=== PATIENT | female | born 1950 | race Caucasian/White ===

== ENCOUNTER 2017-12-02 11:48 | Outpatient (CLI) | payer MEDICARE, OTHER | END 2017-12-02 11:49 | disposition home or self-care (01) | LOC: BICMAMMO 11:48 | PROVIDERS: ATTEND Family Medicine | DX: Z12.31 Encounter for screening mammogram for malignant neoplasm of breast (principal); R92.1 Mammographic calcification found on diagnostic imaging of breast | CPT/HCPCS: 77063; 77067 ==

== ENCOUNTER 2018-05-20 10:44 | Outpatient (CLI) | payer MEDICARE, OTHER ==
--- NOTE | 2018-05-20 12:08 | BD ---
DEXA BONE DENSITY EXAM: HISTORY: A 68-year-old postmenopausal female for screening. COMPARISON: 07/21/2012 FINDINGS: LUMBAR SPINE BMD (g/cm2) T-SCORE L1 0.876 -1.0 L2 0.901 -1.2 L3 0.983 -0.9 L4 1.098 0.3 TOTAL L1-L4 0.972 -0.7 LEFT FEMORAL NECK 0.738 -1.0 TOTAL PROXIMAL LEFT FEMUR 0.915 -0.2 IMPRESSION: Normal bone mineral density. When compared to the prior examination, the bone density in the hip has decreased approximately 6%, and the bone density in the spine has not changed significantly. POS: [facility]
== END 2018-05-20 10:45 | disposition home or self-care (01) ==
LOC: BICMAMMO 10:44
PROVIDERS: ATTEND Family Medicine
DX: Z13.820 Encounter for screening for osteoporosis (principal)
CPT/HCPCS: 77080

== ENCOUNTER 2018-12-10 20:30 | Outpatient (CLI) | payer MEDICARE, OTHER | END 2018-12-10 20:31 | disposition home or self-care (01) | LOC: SLEEPLAB 20:30 | PROVIDERS: ATTEND Family Medicine | DX: G47.9 Sleep disorder, unspecified (principal); G47.33 Obstructive sleep apnea (adult) (pediatric); E66.9 Obesity, unspecified; I10 Essential (primary) hypertension; R53.83 Other fatigue | CPT/HCPCS: 95810 ==

== ENCOUNTER 2018-12-12 11:51 | Outpatient (CLI) | payer MEDICARE, OTHER ==
--- NOTE | 2018-12-12 15:25 | MMO ---
Bilateral MAMMO Bilat Screen [facility]. CLINICAL HISTORY: Patient is 68 years old and is seen for screening. The patient has no family history of breast cancer. The patient has no personal history of cancer. VIEWS: The views performed were: bilateral craniocaudal with tomosynthesis and bilateral mediolateral oblique with tomosynthesis. FILMS COMPARED: The present examination has been compared to a prior imaging study performed at [facility] on 12/02/2017. MAMMOGRAM FINDINGS: There are scattered fibroglandular densities. There are benign appearing calcifications seen in both breasts. There are no suspicious masses, suspicious calcifications, or new areas of architectural distortion. IMPRESSION: THERE IS NO MAMMOGRAPHIC EVIDENCE OF MALIGNANCY. A ROUTINE FOLLOW-UP MAMMOGRAM IN 1 YEAR IS RECOMMENDED. THE RESULTS OF THIS EXAM WERE SENT TO THE PATIENT. ACR BI-RADS Category 2 - Benign finding MAMMOGRAPHY NOTE: 1. A negative mammogram report should not delay a biopsy if a dominant of clinically suspicious mass is present. 2. Approximately 10% to 15% of breast cancers are not detected by mammography. 3. Adenosis and dense breasts may obscure an underlying neoplasm. Reported by: FLO CASEY MD Electonically Signed: [id number]
== END 2018-12-12 11:52 | disposition home or self-care (01) ==
LOC: BICMAMMO 11:51
PROVIDERS: ATTEND Family Medicine
DX: Z12.31 Encounter for screening mammogram for malignant neoplasm of breast (principal)
CPT/HCPCS: 77063; 77067

== ENCOUNTER 2019-01-06 20:30 | Outpatient (CLI) | payer MEDICARE, OTHER | END 2019-01-06 20:31 | disposition home or self-care (01) | LOC: SLEEPLAB 20:30 | PROVIDERS: ATTEND Family Medicine | DX: G47.9 Sleep disorder, unspecified (principal); G47.33 Obstructive sleep apnea (adult) (pediatric); R53.83 Other fatigue; I10 Essential (primary) hypertension; R06.83 Snoring; G47.10 Hypersomnia, unspecified; E66.9 Obesity, unspecified; Z68.31 Body mass index [BMI] 31.0-31.9, adult | CPT/HCPCS: 95811 ==

== ENCOUNTER 2021-01-24 13:16 | Outpatient (CLI) | payer MEDICARE, OTHER | END 2021-01-24 13:17 | disposition home or self-care (01) | LOC: BICMAMMO 13:16 | PROVIDERS: ATTEND Family Medicine | DX: Z12.31 Encounter for screening mammogram for malignant neoplasm of breast (principal) | CPT/HCPCS: 77063; 77067 ==

== ENCOUNTER 2021-12-15 10:55 | Outpatient (CLI) | payer MEDICARE, OTHER ==
[2021-12-15 12:47] LABS: #Basophils 0.1 10x3/uL (0.0-0.2); #Eosinphils 0.2 10x3/uL (0.0-0.5); #Monocytes 0.6 10x3/uL (0.0-1.1); #Neutrophils 4.5 10x3/uL (1.5-8.4); %Basophils 0.9 % (0.0-2.0); %Eosinophils 2.7 % (0.0-6.0); %Monocytes 8.4 % (0.0-10.0); %Neutrophils 59.7 % (40.0-75.0); Hemoglobin 13.4 g/dL (12.0-15.5); Mean Corpuscular HGB CONC 33.9 g/dL (32.0-36.0); Mean Corpuscular Volume 88.6 fl (81.6-98.3); Mean Platelet Volume 10.6 fl (7.4-10.4); Platelet Count 179 10x3/uL (150-450); RBC Distribution Width 14.2 % (11.5-14.5); Red Blood Cell (RBC) Count 4.46 10x6/uL (3.90-5.03); White Blood Cell (WBC) Count 7.5 10x3/uL (3.5-10.5)
== END 2021-12-15 10:56 | disposition home or self-care (01) ==
LOC: LABBT 10:55
PROVIDERS: ATTEND Orthopaedic Surgery Hand Surgery
DX: Z01.818 Encounter for other preprocedural examination (principal); Z20.822 Contact with and (suspected) exposure to COVID-19
CPT/HCPCS: 85025; 87811; 93005; 93010

== ENCOUNTER → 2021-12-20 | Day surgery (SDC) | payer MEDICARE, OTHER ==
[2021-12-15 13:56] VITALS: BMI 30.7
[~2021-12-20] MED LIST: Bacitracin Zinc Ointment 30 gm TUBE ONE; Bupivacaine PF 0.5% 30 ML VIAL ONE; CEFAZOLIN 2 GM VIAL ONE; Dexamethasone 20 MG/5 ML VIAL ONE; Fentanyl 100 MCG/2 ML VIAL ONE; Ketorolac Tromethamine 30 MG/ML VIAL ONE; Lidocaine 1% MPF 2 ML VIAL ONE; Midazolam HCl 2 mg/2 ml Vial ONE; Neomycin-Polymyxin 1 ML AMP ONE; Ondansetron PF 4 MG/2 ML Vial ONE; PROPOFOL 200 MG/20 ML VIAL ONE; Sodium Chloride 0.9% 100 ML ONE; ePHEDrine 50 MG/ML VIAL ONE; fentaNYL Citrate/PF 100 MCG/2 ML SYRINGE ONE
== END | disposition home or self-care (01) ==
LOC: SDC 11:44
PROVIDERS: ATTEND Orthopaedic Surgery Hand Surgery
PROC: 01N50ZZ Release Median Nerve, Open Approach (ICD-10-PCS; principal; 2021-12-20)
PROC: 0LB50ZZ Excision of Right Lower Arm and Wrist Tendon, Open Approach (ICD-10-PCS; 2021-12-20)
PROC: 0LX50ZZ Transfer Right Lower Arm and Wrist Tendon, Open Approach (ICD-10-PCS; 2021-12-20)
PROC: 0RUS07Z Supplement Right Carpometacarpal Joint with Autologous Tissue Substitute, Open Approach (ICD-10-PCS; 2021-12-20)
PROC: 3E0T3BZ Introduction of Anesthetic Agent into Peripheral Nerves and Plexi, Percutaneous Approach (ICD-10-PCS; 2021-12-20)
DX: M18.0 Bilateral primary osteoarthritis of first carpometacarpal joints (principal); G56.03 Carpal tunnel syndrome, bilateral upper limbs; M67.431 Ganglion, right wrist; M65.331 Trigger finger, right middle finger; M19.031 Primary osteoarthritis, right wrist; M19.032 Primary osteoarthritis, left wrist; I10 Essential (primary) hypertension; E78.5 Hyperlipidemia, unspecified; E03.9 Hypothyroidism, unspecified; Z86.010 Personal history of colon polyps; Z87.891 Personal history of nicotine dependence; Z79.82 Long term (current) use of aspirin; Z79.890 Hormone replacement therapy; Z79.899 Other long term (current) drug therapy
CPT/HCPCS: 76000; 88304; J0690; J1100; J1885; J2250; J2405; J2704; J3010; J3490; S0020

== ENCOUNTER 2023-02-19 09:39 | Outpatient (CLI) | payer MEDICARE, OTHER | END 2023-02-19 09:40 | disposition home or self-care (01) | LOC: BICMAMMO 09:39 | PROVIDERS: ATTEND Family Medicine | DX: Z13.820 Encounter for screening for osteoporosis (principal); M85.88 Other specified disorders of bone density and structure, other site | CPT/HCPCS: 77080 ==

== ENCOUNTER 2023-12-23 07:14 | Outpatient (CLI) | payer MEDICARE, OTHER ==
[2023-12-23] MEDS ORDERED: Iopamidol 370 76% 100 ML VIAL ONE (07:23)
== END 2023-12-23 07:15 | disposition home or self-care (01) ==
LOC: CT 07:14
PROVIDERS: ATTEND Internal Medicine Cardiovascular Disease
DX: I77.810 Thoracic aortic ectasia (principal); Z01.818 Encounter for other preprocedural examination; M17.11 Unilateral primary osteoarthritis, right knee
CPT/HCPCS: 71275; 82565; 93005; Q9967; 80053; 84443; 85025; 93010

== ENCOUNTER 2023-12-23 08:31 | Outpatient (CLI) | payer MEDICARE, OTHER ==
[2023-12-23 09:44] LABS: #Basophils 0.05 10x3/uL (0.0-0.2); %Basophils 0.8 % (0.0-1.0); %Eosinophils 2.6 % (0.0-10.0); %Lymphocytes 25.7 % (21.0-51.0); %Monocytes 7.2 % (0.0-10.0); %Neutrophils 63.4 % (42.0-75.0); Hematocrit 38.2 % (36.0-47.0); Hemoglobin 12.6 g/dL (12.0-16.0); Mean Corpuscular Hemoglobin 30.8 pg (27.0-31.0); Mean Corpuscular Volume 93.4 fL (78.0-98.0); Mean Platelet Volume 9.9 fL (7.4-10.4); Platelet Count 153 10x3/uL (130-400); RBC Distribution Width 13.2 % (11.5-14.5); Red Blood Cell (RBC) Count 4.09 mill/uL (4.20-5.40)
[2023-12-23 10:07] LABS: ALT (SGPT) 18 U/L (8-55); AST (SGOT) 18 U/L (5-34); Albumin 3.7 g/dL (3.4-4.8); Alkaline Phosphatase 59 U/L (40-110); Anion Gap 10 mmol/L (10-20); BUN (Urea Nitrogen) 15 mg/dL (9.8-20.1); Bilirubin, Total 0.5 mg/dL (0.2-1.2); Calc. Creatinine Clearance 0 mL/min (70-130); Calcium 9.3 mg/dL (7.8-10.44); Carbon Dioxide 25 mmol/L (23-31); Chloride 110 mmol/L (98-107); Estimated GFR 81; Globulin 2.9 g/dL (2.4-3.5); Glucose 103 mg/dL (83-110); Potassium 4.1 mmol/L (3.5-5.1); Protein, Total 6.6 g/dL (5.8-8.1); Sodium 141 mmol/L (136-145)
== END 2023-12-23 08:32 | disposition home or self-care (01) ==
LOC: LABBT 08:31
PROVIDERS: ATTEND Family Medicine
DX: Z01.818 Encounter for other preprocedural examination (principal); M17.11 Unilateral primary osteoarthritis, right knee
CPT/HCPCS: 80053; 84443; 85025; 93005; 93010

== ENCOUNTER 2023-12-31 10:04 | Observation (INO) | payer MEDICARE, OTHER ==
[2023-12-23 09:08] VITALS: BMI 31.9
[2023-12-31] MEDS ORDERED: Tranexamic Acid 1,000 MG/10 ML VIAL ONE (10:34)
[2023-12-31] MEDS ORDERED: Sodium Chloride 0.9% 100 ML ONE ×2 (10:35)
[2023-12-31] MEDS ORDERED: Vancomycin (BATCH) 1.5 GM/300 ML BAG ONE (10:35)
[2023-12-31] MEDS ORDERED: CEFAZOLIN 2 GM VIAL ONE (10:35)
[2023-12-31] MEDS ORDERED: Midazolam HCl 2 mg/2 ml Vial ONE (10:45)
[2023-12-31] MEDS ORDERED: Bupivacaine PF 0.5% 30 ML VIAL ONE (10:45)
[2023-12-31] MEDS ORDERED: fentaNYL 50 mcg/mL 1 mL Vial ONE ×4 (10:45→16:18)
[2023-12-31] MEDS ORDERED: Acetaminophen 500 MG TAB ONE (10:48)
[2023-12-31] MEDS ORDERED: fentaNYL 50 mcg/mL 1 mL Vial SLOW IVP PRN (11:13)
[2023-12-31] MEDS ORDERED: traMADol HCl 50 MG TAB PO PRN ×2 (11:15)
[2023-12-31] MEDS ORDERED: Zolpidem Tartrate 5 MG TAB PO PRN ×2 (11:15→14:48)
[2023-12-31] MEDS ORDERED: Ropivacaine 0.2% 550 ML 550 ML NERVE BLCK SCH (11:15)
[2023-12-31] MEDS ORDERED: HYDROcodone/Acetaminophen 10/325 mg Tablet PO PRN (11:15)
[2023-12-31] MEDS ORDERED: Promethazine HCl 25 MG/ML VIAL IM PRN (11:15)
[2023-12-31] MEDS ORDERED: Ondansetron PF 4 MG/2 ML Vial IVP PRN (11:15)
[2023-12-31 11:41] LABS: Cardiac Risk 3.5 (Less than 4.5)
[2023-12-31] MEDS ORDERED: Bupivacaine 0.25% HCL 30 ML VIAL ONE (12:09)
[2023-12-31] MEDS ORDERED: EPINEPHrine 1 MG/ML VIAL ONE (12:09)
[2023-12-31] MEDS ORDERED: Lidocaine 2% PF 100 mg/5 ml Syringe ONE (12:29)
[2023-12-31] MEDS ORDERED: fentaNYL PF 100 MCG/2 ML SYRINGE ONE (12:29)
[2023-12-31] MEDS ORDERED: Rocuronium Bromide 10 MG/ML (10ML VIAL) ONE (12:29)
[2023-12-31] MEDS ORDERED: PHENYLEPHRINE-NS 100 MCG/ML 10 ML SYRINGE ONE (12:33)
[2023-12-31] MEDS ORDERED: PROPOFOL 200 MG/20 ML VIAL ONE (12:33)
[2023-12-31] MEDS ORDERED: Dexamethasone 4 mg/ml Vial ONE (13:10)
[2023-12-31] MEDS ORDERED: Ondansetron PF 4 MG/2 ML Vial ONE (13:10)
[2023-12-31] MEDS ORDERED: SUGAMMADEX SODIUM 200 MG/2 ML VIAL ONE (13:10)
[2023-12-31] MEDS ORDERED: diphenhydrAMINE 25 MG CAP PO PRN (14:48)
[2023-12-31] MEDS ORDERED: Acetaminophen 325 MG TAB PO PRN (14:48)
[2023-12-31] MEDS: Ketorolac Tromethamine 30 MG (1 mL) VIAL IVP SCH (17:03)
[2023-12-31] MEDS: CEFAZOLIN 2 GM in Sodium Chloride 0.9% 100 ML IVPB SCH (17:55)
[2023-12-31] MEDS: Sodium Chloride 0.9% 1,000 ML IV SCH (17:56)
[2023-12-31] MEDS: HYDROcodone/Acetaminophen 10/325 mg Tablet PO PRN (21:59)
[2023-12-31] MEDS: Ferrous Gluconate 324 MG TAB PO SCH (22:00)
[2023-12-31] MEDS: Atorvastatin Calcium 40 MG TAB PO SCH (22:00)
[2023-12-31] MEDS: Aspirin 81 mg Enteric Coated Tablet PO SCH (22:00)
[2023-12-31] MEDS: Losartan 25 MG TAB PO SCH (22:00)
[2023-12-31] MEDS: Senokot S 8.6-50 MG TAB PO SCH (22:00)
[2024-01-01] MEDS: Levothyroxine Sodium 112 MCG TAB PO SCH (04:55)
[2024-01-01 06:17] VITALS: TEMP 98.1
[2024-01-01 06:47] LABS: Hematocrit 30.2 % (36.0-47.0); Hemoglobin 9.9 g/dL (12.0-16.0); Mean Corpuscular HGB CONC 32.8 g/dL (32.0-36.0); Mean Corpuscular Hemoglobin 31.1 pg (27.0-31.0); Platelet Count 147 10x3/uL (130-400); RBC Distribution Width 12.8 % (11.5-14.5); Red Blood Cell (RBC) Count 3.18 mill/uL (4.20-5.40)
[2024-01-01] MEDS: Multivitamin W/ Minerals 1 TAB PO SCH (08:55)
[2024-01-01 11:54] VITALS: BP 131/72
== END 2024-01-01 14:47 | disposition home or self-care (01) ==
LOC: SDC 10:04 → SURG B 16:41 → SDC 18:32
PROVIDERS: ADMIT Orthopaedic Surgery; ATTEND Orthopaedic Surgery
PROC: 0SRC0JZ Replacement of Right Knee Joint with Synthetic Substitute, Open Approach (ICD-10-PCS; principal; 2023-12-31)
PROC: 3E0T3BZ Introduction of Anesthetic Agent into Peripheral Nerves and Plexi, Percutaneous Approach (ICD-10-PCS; 2023-12-31)
PROC: 3E0T33Z Introduction of Anti-inflammatory into Peripheral Nerves and Plexi, Percutaneous Approach (ICD-10-PCS; 2023-12-31)
DX: M17.11 Unilateral primary osteoarthritis, right knee (principal); I10 Essential (primary) hypertension; E78.5 Hyperlipidemia, unspecified; I73.9 Peripheral vascular disease, unspecified; Z79.899 Other long term (current) drug therapy
CPT/HCPCS: 0055T; 27447; 64447; 36415; 80061; 85027; A4306; C1713; C1776; C1889; J0171; J0665; J1100; J1885; J2001; J2250; J2405; J2704; J2795; J3010; J3370; J7030

== ENCOUNTER 2024-03-17 10:40 | Outpatient (CLI) | payer MEDICARE, OTHER | END 2024-03-17 10:41 | disposition home or self-care (01) | LOC: BICMAMMO 10:40 | PROVIDERS: ATTEND Family Medicine | DX: Z12.31 Encounter for screening mammogram for malignant neoplasm of breast (principal) | CPT/HCPCS: 77063; 77067 ==

== ENCOUNTER 2025-03-19 15:34 | Outpatient (CLI) | payer MEDICARE, OTHER | END 2025-03-19 15:35 | disposition home or self-care (01) | LOC: BICMAMMO 15:34 | PROVIDERS: ATTEND Family Medicine | DX: Z12.31 Encounter for screening mammogram for malignant neoplasm of breast (principal) | CPT/HCPCS: 77063; 77067 ==